=== PATIENT | male | born 1995 | race Caucasian/White ===

== ENCOUNTER 2017-10-01 18:52 | Emergency (ER) | payer OTHER ==
--- NOTE | 2017-10-01 20:14 | RAD ---
LEFT SHOULDER THREE VIEW 10/01/17 HISTORY: Dislocated shoulder. COMPARISON: None. FINDINGS: Anterior subcoracoid shoulder dislocation. Hill-Sachs deformity is present. IMPRESSION: Anterior subcoracoid shoulder dislocation. POS: [facility]
--- NOTE | 2017-10-01 20:49 | RAD ---
LEFT SHOULDER THREE VIEW: 10/01/17 HISTORY: Dislocation. COMPARISON: Radiograph same day. FINDINGS: Satisfactory alignment post reduction. Small Hill-Sachs deformity is present. There is an ossicle at the coracoclavicular ligament which may reflect a prior injury. IMPRESSION: Satisfactory alignment post reduction. POS: [facility]
== END 2017-10-01 20:39 | disposition home or self-care (01) ==
LOC: ERS 18:52
DX: S43.085A Other dislocation of left shoulder joint, initial encounter (principal); Z87.891 Personal history of nicotine dependence; X58.XXXA Exposure to other specified factors, initial encounter
CPT/HCPCS: 23650